=== PATIENT | female | born 1975 | race Two or more races ===

== ENCOUNTER 2022-02-11 10:07 | Emergency (ER) | payer MEDICAID, OTHER ==
[~2022-02-11] VITALS: Ht 162.6 cm; Wt 77.2 kg
[2022-02-11] MEDS ORDERED: cloNIDine HCL 0.1 MG TAB PO ONE ×2 (11:15→16:30)
[2022-02-11 11:36] LABS: Basophils # (auto) 0 10 ^3/uL (0-0.2); Eosinophils # (auto) 0.1 10 ^3/uL (0-0.8); Hemoglobin 13.6 g/dL (12.2-16.2); Monocytes # (auto) 0.3 10 ^3/uL (0-1.3); Neutrophils # (auto) 4.1 10 ^3/uL (1.6-8.6); Red Cell Distribution Width 15.1 % (11.8-14.3)
[2022-02-11 11:39] LABS: Basophils % (auto) 0.5 % (0.0-2.0); Hematocrit 40.9 % (36.0-46.0); Lymphocytes # (auto) 1.4 10 ^3/uL (0.4-5.4); Lymphocytes % (auto) 23.1 % (10.0-50.0); Mean Corpuscular Hemoglobin 26.2 pg (28.0-32.0); Mean Corpuscular Hgb Conc. 33.2 g/dL (32.0-36.0); Mean Corpuscular Volume 78.8 fL (80.0-100.0); Monocytes % (auto) 5.7 % (0.0-12.0); Neutrophils % (auto) 69.7 % (37.0-80.0); Nucleated Red Blood Cells % 0.1 %; Red Blood Cells 5.19 10^6/uL (4.0-5.20); White Blood Cell 5.9 10^3/uL (4.4-10.8)
[2022-02-11 11:52] LABS: BUN/Creatinine Ratio 15.4; Calcium 9.4 mg/dL (8.5-10.1); Potassium 4.2 mmol/L (3.5-5.1)
[2022-02-11 11:55] LABS: Bilirubin, Total 0.6 mg/dL (0.2-1.0); Total Protein 7.8 g/dL (6.4-8.2)
[2022-02-11 12:10] LABS: Urine Bacteria FEW /hpf (None Seen); Urine Blood 3+ /uL (Negative); Urine Mucus FEW (None Seen); Urine Specific Gravity 1.038 (1.001-1.035); Urine WBC 16 /hpf (0 - 5)
[2022-02-11 14:11] VITALS: BP 142/76
[2022-02-11] MEDS ORDERED: CLON0.1T PO (15:19)
[2022-02-11] MEDS ORDERED: cloNIDine HCL 0.1 MG TAB ONE (16:23)
== END 2022-02-11 22:41 | disposition home or self-care (01) ==
LOC: ER 10:07
DX: I10 Essential (primary) hypertension (principal)
CPT/HCPCS: 36415; 80053; 81001; 82962; 84484; 85025